=== PATIENT | female | born 2000 | race Caucasian/White ===

== ENCOUNTER 2021-03-16 18:36 | Emergency (ER) | payer OTHER ==
[2021-03-16] MEDS ORDERED: Sodium Chloride 0.9% 10 ML Syringe FLUSH PRN (18:49)
[2021-03-16] MEDS ORDERED: Sodium Chloride 0.9% 1,000 ML IV SCH (19:00)
[2021-03-16] MEDS ORDERED: HYDROmorphone 1 MG/ML Syringe IVPUSH ONE (19:18)
--- NOTE | 2021-03-16 19:21 | EDM.PDOC ---
ED HPI GENERAL MEDICAL PROBLEM - General Source of Information: Reports: Patient History Limitations: Reports: No Limitations - History of Present Illness Onset: Sudden Duration: Minutes: Location: Reports: Lower Extremity, Left (hip) Quality: Reports: Sharp Severity: Severe Improves with: Reports: Immobilization Worsens with: Reports: Movement Context: Reports: Trauma (Thrown from horse) Associated Symptoms: Reports: No Other Symptoms Left Hip Pain Score (Numeric/FACES): 5 <Nirav Joel - Last Filed: 03/16/21 19:17> <Kiko Castaneda - Last Filed: 03/17/21 05:57> - General Chief Complaint: Trauma Stated Complaint: LEFT SIDE POSSIBLE BROKEN HIP FELL OFF HORSE Time Seen by Provider: 03/16/21 18:45 - History of Present Illness INITIAL COMMENTS - FREE TEXT/NARRATIVE: The patient presents by private vehicle for left hip pain. She was thrown from a horse. She did not hit her head or hurt her neck. She did land on her left hip. She could not walk on it. She has no chest pain, shortness of breath, abdominal pain, nausea or vomiting. She has no medical problems. (Nirav Joel) - Related Data Allergies Allergy/AdvReac Type Severity Reaction Status Date / Time Penicillins Allergy Severe Hives Verified 03/16/21 18:53 Home Meds: Home Meds Non-Formulary Medication [NF Drug] 1 tab PO DAILY 03/16/21 [History] Past Medical History - Past Surgical History HEENT Surgical History: Reports: Tonsillectomy Musculoskeletal Surgical History: Reports: Other (See Below) Other Musculoskeletal Surgeries/Procedures:: Hand Surgery <Nirav Joel - Last Filed: 03/16/21 19:17> Social & Family History - Tobacco Use Tobacco Use Status *Q: Never Tobacco User - Caffeine Use Caffeine Use: Reports: None - Recreational Drug Use Recreational Drug Use: No <Nirav Joel - Last Filed: 03/16/21 19:17> Review of Systems - Review of Systems Review Of Systems: See Below Constitutional: Reports: No Symptoms Eyes: Reports: No Symptoms Ears: Reports: No Symptoms Nose: Reports: No Symptoms Mouth/Throat: Reports: No Symptoms Respiratory: Reports: No Symptoms Cardiovascular: Reports: No Symptoms GI/Abdominal: Reports: No Symptoms Musculoskeletal: Reports: Other (Left hip) <Nirav Joel - Last Filed: 03/16/21 19:17> ED EXAM, GENERAL - Physical Exam Exam: See Below Exam Limited By: No Limitations General Appearance: Alert, No Apparent Distress Ears: Normal External Exam Nose: Normal Inspection Head: Atraumatic, Normocephalic Neck: Normal Inspection, Supple, Non-Tender Respiratory/Chest: No Respiratory Distress, Lungs Clear, Normal Breath Sounds Cardiovascular: Regular Rate, Rhythm, No Edema, No Murmur GI/Abdominal: Soft, No Organomegaly, No Mass, Tender (Mild tenderness to the left lower abodmen with some ecchymosis) Extremities: Other (Pain upon palpation to the left hip and left anterior pelvis but pelvis appears stable. Good sensation and pulses distally.) Neurological: Alert, Oriented, No Motor/Sensory Deficits <Nirav Joel - Last Filed: 03/16/21 19:17> Course <Nirav Joel - Last Filed: 03/16/21 19:17> <Kiko Castaneda - Last Filed: 03/17/21 05:57> - Vital Signs Text/Narrative:: Care of patient assumed from Dr. Joel at 1899 pending radiography results Results were reviewed and discussed with patient 2041 - Case was discussed with Dr. Colon (Trauma Surgery at [facility]) who indicated no general surgery concerns based on CT findings and clinical condition 2054 - Case was discussed with Dr. Bryan (Orthopedics at [facility]) who advised no special orthopedic concerns Patient had persistence of significant pain with ambulation additional analgesic treatment was provided with ketorolac IV, and oral oxycodone/acetaminophen There was significant functional improvement in mobility at reevaluation Limited, short-term, analgesic treatment was prescribed Orthopedic follow-up was advised She was provided crutches for assistance with ambulation Patient was felt to be stable for outpatient follow-up Return precautions were provided (Kiko Castaneda) Last Recorded V/S: Last Vital Signs Temp 36.1 C 03/16/21 20:06 Pulse 88 03/16/21 20:06 Resp 18 03/16/21 20:06 BP 141/78 H 03/16/21 20:06 Pulse Ox 100 03/16/21 20:06 - Orders/Labs/Meds Orders: Active Orders 24 hr Category Date Time Status Abdomen Pelvis w Cont [CT] Stat Exams 03/16/21 18:51 Taken CXR [Chest 1V Frontal] [CR] Stat Exams 03/16/21 18:52 Taken DME for Discharge [COMM] Per Unit Routine Oth 03/16/21 23:52 Ordered Peripheral IV Insertion Adult [OM.PC] Stat Oth 03/16/21 18:49 Ordered Labs: Laboratory Tests 03/16/21 03/16/21 03/16/21 Range/Units 15:06 15:06 15:06 WBC (3.98-10.04) K/mm3 RBC (3.98-5.22) M/mm3 Hgb (11.2-15.7) gm/dl Hct (34.1-44.9) % MCV (79.4-94.8) fl MCH (25.6-32.2) pg MCHC (32.2-35.5) g/dl RDW Std Deviation (36.4-46.3) fL Plt Count (182-369) K/mm3 MPV (9.4-12.3) fl Neut % (Auto) (34.0-71.1) % Lymph % (Auto) (19.3-51.7) % Sierra % (Auto) (4.7-12.5) % Eos % (Auto) (0.7-5.8) Baso % (Auto) (0.1-1.2) % Neut # (Auto) (1.56-6.13) K/mm3 Lymph # (Auto) (1.18-3.74) K/mm3 Sierra # (Auto) (0.24-0.36) K/mm3 Eos # (Auto) (0.04-0.36) K/mm3 Baso # (Auto) (0.01-0.08) K/mm3 Manual Slide Review Sodium (136-145) mEq/L Potassium (3.5-5.1) mEq/L Chloride (98-107) mEq/L Carbon Dioxide (21-32) mEq/L Anion Gap (5-15) BUN (7-18) mg/dL Creatinine (0.55-1.02) mg/dL Est Cr Clr Drug Dosing Estimated GFR (MDRD) (>60) mL/min BUN/Creatinine Ratio (14-18) Glucose (74-106) mg/dL Calcium (8.5-10.1) mg/dL Total Bilirubin (0.2-1.0) mg/dL AST (15-37) U/L ALT (14-59) U/L Alkaline Phosphatase (46-116) U/L Total Protein (6.4-8.2) g/dl Albumin (3.4-5.0) g/dl Globulin gm/dL Albumin/Globulin Ratio (1-2) Lipase (73-393) U/L Urine Color Yellow (Yellow) Urine Appearance Clear (Clear) Urine pH 6.5 (5.0-8.0) Ur Specific [employer] 1.020 (1.005-1.030) Urine Protein 2+ H (Negative) Urine Glucose (UA) Negative (Negative) Urine Ketones Trace H (Negative) Urine Occult Blood 2+ H (Negative) Urine Nitrite Negative (Negative) Urine Bilirubin Negative (Negative) Urine Urobilinogen 0.2 (0.2-1.0) Ur Leukocyte Esterase Trace H (Negative) Urine RBC 10-20 H (0-5) /hpf Urine WBC 5-10 H (0-5) /hpf Ur Squamous Epith Cells 5-10 H (0-5) /hpf Urine Bacteria Moderate H (FEW) /hpf Urine Mucus Rare (FEW) /hpf Urine HCG, Qual Negative (NEGATIVE) Urine Opiates Screen Negative (RHXKDI=983) Ur Buprenorphine Scrn Negative (CUTOFF=10) Ur Oxycodone Screen Negative (MIB9GY=451) Urine Methadone Screen Negative (VQFAPW=742) Ur Propoxyphene Screen Negative (FMVHMV=792) Ur Barbiturates Screen Negative (SOWTSM=603) Ur Tricyclics Screen Negative (EGGHGI=891) Ur Phencyclidine Scrn Negative (CUTOFF=25) Ur Amphetamine Screen Negative (AJGMYV=229) U Methamphetamines Scrn Negative (BHLNTG=124) U Benzodiazepines Scrn Negative (QAJDON=286) U Cocaine Metab Screen Negative (WAGILV=774) U Marijuana (THC) Screen Negative (CUTOFF=50) Ethyl Alcohol (0.00) gm% 03/16/21 03/16/21 Range/Units 18:50 18:50 WBC 17.82 H (3.98-10.04) K/mm3 RBC 4.99 (3.98-5.22) M/mm3 Hgb 14.6 (11.2-15.7) gm/dl Hct 43.4 (34.1-44.9) % MCV 87.0 (79.4-94.8) fl MCH 29.3 (25.6-32.2) pg MCHC 33.6 (32.2-35.5) g/dl RDW Std Deviation 39.7 (36.4-46.3) fL Plt Count 222 (182-369) K/mm3 MPV 11.1 (9.4-12.3) fl Neut % (Auto) 84.0 H (34.0-71.1) % Lymph % (Auto) 9.0 L (19.3-51.7) % Sierra % (Auto) 6.5 (4.7-12.5) % Eos % (Auto) 0.1 L (0.7-5.8) Baso % (Auto) 0.1 (0.1-1.2) % Neut # (Auto) 14.96 H (1.56-6.13) K/mm3 Lymph # (Auto) 1.60 (1.18-3.74) K/mm3 Sierra # (Auto) 1.16 H (0.24-0.36) K/mm3 Eos # (Auto) 0.02 L (0.04-0.36) K/mm3 Baso # (Auto) 0.02 (0.01-0.08) K/mm3 Manual Slide Review Abnormal smear Sodium 141 (136-145) mEq/L Potassium 3.4 L (3.5-5.1) mEq/L Chloride 105 (98-107) mEq/L Carbon Dioxide 21 (21-32) mEq/L Anion Gap 18.4 H (5-15) BUN 13 (7-18) mg/dL Creatinine 0.9 (0.55-1.02) mg/dL Est Cr Clr Drug Dosing TNP Estimated GFR (MDRD) > 60 (>60) mL/min BUN/Creatinine Ratio 14.4 (14-18) Glucose 82 (74-106) mg/dL Calcium 8.6 (8.5-10.1) mg/dL Total Bilirubin 0.4 (0.2-1.0) mg/dL AST 79 H (15-37) U/L ALT 69 H (14-59) U/L Alkaline Phosphatase 63 (46-116) U/L Total Protein 7.6 (6.4-8.2) g/dl Albumin 3.9 (3.4-5.0) g/dl Globulin 3.7 gm/dL Albumin/Globulin Ratio 1.1 (1-2) Lipase 104 (73-393) U/L Urine Color (Yellow) Urine Appearance (Clear) Urine pH (5.0-8.0) Ur Specific [employer] (1.005-1.030) Urine Protein (Negative) Urine Glucose (UA) (Negative) Urine Ketones (Negative) Urine Occult Blood (Negative) Urine Nitrite (Negative) Urine Bilirubin (Negative) Urine Urobilinogen (0.2-1.0) Ur Leukocyte Esterase (Negative) Urine RBC (0-5) /hpf Urine WBC (0-5) /hpf Ur Squamous Epith Cells (0-5) /hpf Urine Bacteria (FEW) /hpf Urine Mucus (FEW) /hpf Urine HCG, Qual (NEGATIVE) Urine Opiates Screen (WRLUYC=095) Ur Buprenorphine Scrn (CUTOFF=10) Ur Oxycodone Screen (NWS7EB=197) Urine Methadone Screen (MLLGXB=499) Ur Propoxyphene Screen (KBFBBN=322) Ur Barbiturates Screen (IAJRSZ=229) Ur Tricyclics Screen (XQGBUQ=789) Ur Phencyclidine Scrn (CUTOFF=25) Ur Amphetamine Screen (OWPAGL=775) U Methamphetamines Scrn (QAFGAA=137) U Benzodiazepines Scrn (YCHYAB=540) U Cocaine Metab Screen (IKARBC=492) U Marijuana (THC) Screen (CUTOFF=50) Ethyl Alcohol 0.05 (0.00) gm% Meds: Medications Discontinued Medications Generic Name Dose Route Start Last Admin Trade Name Freq PRN Reason Stop Dose Admin Hydromorphone HCl 1 mg 03/16/21 19:18 03/16/21 19:41 Hydromorphone 1 Mg/Ml Syringe IVPUSH 03/16/21 19:19 1 mg ONETIME ONE Administration Sodium Chloride 1,000 mls @ 125 mls/hr 03/16/21 19:00 03/16/21 19:03 Normal Saline IV 125 mls/hr ASDIRECTED ROCKY Administration Iopamidol 100 ml 03/16/21 19:50 03/16/21 19:53 Iopamidol 612 Mg/Ml 100 Ml Bottle IVPUSH 03/16/21 19:51 100 ml ONETIME ONE Administration Iopamidol 50 ml 03/16/21 19:50 03/16/21 19:53 Iopamidol 612 Mg/Ml 50 Ml Sdv IVPUSH 03/16/21 19:51 25 ml ONETIME ONE Administration Ketorolac Tromethamine 15 mg 03/16/21 22:03 03/16/21 22:17 Ketorolac 15 Mg/Ml Sdv IVPUSH 03/16/21 22:04 15 mg ONETIME ONE Administration Oxycodone/Acetaminophen 2 tab 03/16/21 22:03 03/16/21 22:17 Acetaminophen/Oxycodone 325-5 Mg Tab PO 03/16/21 22:04 2 tab ONETIME ONE Administration Sodium Chloride 10 ml 03/16/21 18:49 03/16/21 18:57 Sodium Chloride 0.9% 10 Ml Syringe FLUSH 10 ml ASDIRECTED PRN Administration Keep Vein Open Sodium Chloride 10 ml 03/16/21 19:50 03/16/21 19:54 Sodium Chloride 0.9% 10 Ml Syringe FLUSH 03/16/21 19:51 10 ml ONETIME ONE Administration - Radiology Interpretation Free Text/Narrative:: CT abdomen/pelvis, IV contrast, preliminary radiology report: Acute nondisplaced fracture left iliac bone (Kiko Castaneda) - Re-Assessments/Exams Free Text/Narrative Re-Assessment/Exam: 03/16/21 19:20 I ordered an IV LR at 125mL/hr, dilaudid 1mg IV, labs, UA, CXR, CT of her abdomen and pelvis. It is change of shift. Dr Castaneda to take over. (Nirav Joel) Departure <Nirav Joel - Last Filed: 03/16/21 19:17> - Departure Time of Disposition: 23:33 Condition: Good <Kiko Castaneda - Last Filed: 03/17/21 05:57> - Departure Disposition: Home, Self-Care 01 Clinical Impression: Fall from horse Qualifiers: Encounter type: initial encounter Qualified Code(s): V80.010A - Animal-rider injured by fall from or being thrown from horse in noncollision accident, initial encounter Closed fracture of iliac wing Qualifiers: Encounter type: initial encounter Laterality: left Qualified Code(s): S32.302A - Unspecified fracture of left ilium, initial encounter for closed fracture - Discharge Information Instructions: Simple Pelvic Fracture, Adult Referrals: PCP,Not In Area [Primary Care Provider] - Forms: ED Department Discharge, ED Return to Work/School Form Additional Instructions: Return if condition worsens May resume light activity and regular diet as tolerated May bear weight on the left lower extremity as tolerated Use crutches or walker as needed for assistance with walking Continue usual medications May take IBUPROFEN 600 mg every 6 hours as needed for pain/inflammation May use OXYCODONE/ACETAMINOPHEN sparingly for severe pain, as prescribed May apply topical treatment with heat, ice, and/or menthol/camphor preparation like Biofreeze or BenGay, as tolerated Follow-up with primary care provider is recommended Follow-up with orthopedic provider as recommended in 3 to 5 days; discuss referral for physical therapy Sepsis Event Note (ED) - Evaluation Sepsis Screening Result: No Definite Risk <Nirav Joel - Last Filed: 03/16/21 19:17> - Focused Exam Vital Signs: Vital Signs Temp Pulse Resp BP Pulse Ox 03/16/21 20:06 36.1 C 88 18 141/78 H 100 03/16/21 18:50 36.8 C 88 16 129/72 100 - My Orders Last 24 Hours: My Active Orders 03/16/21 23:52 DME for Discharge [COMM] Per Unit Routine - Assessment/Plan Last 24 Hours: My Active Orders 03/16/21 23:52 DME for Discharge [COMM] Per Unit Routine
[2021-03-16] MEDS ORDERED: Sodium Chloride 0.9% 10 ML Syringe FLUSH ONE (19:50)
[2021-03-16] MEDS ORDERED: Iopamidol 612 MG/ML 50 ML SDV IVPUSH ONE (19:50)
[2021-03-16] MEDS ORDERED: Iopamidol 612 MG/ML 100 ML Bottle IVPUSH ONE (19:50)
[2021-03-16] MEDS ORDERED: Acetaminophen/oxyCODONE 325-5 MG Tab PO ONE (22:03)
[2021-03-16] MEDS ORDERED: Ketorolac 15 MG/ML SDV IVPUSH ONE (22:03)
--- NOTE | 2021-03-18 07:18 | CR ---
Chest: Semi-upright view of the chest was obtained in frontal projection. Comparison: No previous study. Heart size and mediastinum are normal. Lungs are clear with no acute parenchymal change. Slight scoliosis is noted within the spine. No acute osseous abnormality is appreciated. Impression: 1. Nothing acute is seen on frontal chest x-ray. Diagnostic code #2
--- NOTE | 2021-03-18 07:43 | CT ---
CT abdomen and pelvis Technique: Multiple axial sections were obtained from above the dome of the diaphragm inferiorly through the pubic symphysis. Intravenous contrast was utilized. No oral contrast has been given. Reconstructed coronal and sagittal images were obtained. Comparison: No prior abdominal imaging is available. Findings: Visualized lung bases show nothing acute. Contrast-enhanced liver and spleen appear within normal limits. Adrenal glands show no nodule. Kidneys show symmetric contrast enhancement with no hydronephrosis or mass. Gallbladder shows no calcified gallstones. Pancreas appears within normal limits. Abdominal aorta shows no aneurysm. No retroperitoneal adenopathy or mesenteric abnormalities are seen. Appendix is felt to be visualized and is normal in size. No pelvic mass or adenopathy is appreciated. Bone window settings were obtained of the pelvis. Study shows fracture within the left iliac wing with no significant displacement. No additional osseous abnormality is appreciated. Impression: 1. Fracture within the left iliac wing showing no significant displacement. 2. No other acute abnormality is appreciated on CT study of the abdomen and pelvis. Diagnostic code #3 I agree with preliminary report from [facility], finalized on 03/16/21, 8:54 PM CDT, code 1
== END 2021-03-17 00:05 | disposition home or self-care (01) ==
LOC: JD.ED 18:36
DX: S32.302A Unspecified fracture of left ilium, initial encounter for closed fracture (principal); Z88.0 Allergy status to penicillin; V80.010A Animal-rider injured by fall from or being thrown from horse in noncollision accident, initial encounter
CPT/HCPCS: 36415; 71045; 74177; 80053; 80306; 80307; 81001; 81025; 83690; 85025; 96374; 96375; 99284; A9270; J1170; J1885; J7030; Q9967